=== PATIENT | male | born 1945 | race Caucasian/White ===

== ENCOUNTER 2021-05-16 10:07 | Emergency (ER) | payer MEDICARE ==
[~2021-05-16 10:07] MED LIST: FLEXERIL 10 MG10 MG PO; LODINE CAP 300300 MG PO
[2021-05-16 11:14] LABS: HEMOGLOBIN 11.8 gm/dl (14.0-17.5); RED BLOOD COUNT 4.16 M/UL (4.20-5.50); WHITE BLOOD COUNT 9.7 K/UL (4.5-11.0)
[2021-05-16 11:48] LABS: BUN/CREATININE RATIO 14 (0-10)
[2021-05-16] MEDS ORDERED: ZOFRAN ODT 4 MG4 MG PO (14:27)
[2021-05-16] MEDS ORDERED: AUGMENTIN 875-1 EACH PO (14:27)
[2021-05-16] MEDS ORDERED: COLACE 100MG C100 MG PO (14:27)
[2021-05-16] MEDS ORDERED: BENTYL 10MG CAP10 MG PO (14:27)
[2021-05-17] MEDS ORDERED: FINASTERIDE5 MG PO (13:23)
[2021-05-17] MEDS ORDERED: LOSARTAN POTASS50 MG PO (13:24)
[2021-05-17] MEDS ORDERED: ASPIRIN EC81 MG PO (13:24)
[2021-05-17] MEDS ORDERED: MEGARED ADVANC1 EAC1 PO (13:26)
[2021-05-17] MEDS ORDERED: GARLIC1000 MG PO (13:27)
[2021-05-17] MEDS ORDERED: SAW PALMETTO 1160 MG PO (13:27)
== END 2021-05-16 14:43 | disposition home or self-care (01) ==
LOC: ER1 10:07
PROVIDERS: Emergency Medicine
DX: K52.9 Noninfective gastroenteritis and colitis, unspecified (principal); K57.32 Diverticulitis of large intestine without perforation or abscess without bleeding; I10 Essential (primary) hypertension; Z20.822 Contact with and (suspected) exposure to COVID-19
CPT/HCPCS: 71045; 80053; 82550; 82553; 84484; 85025; 93005; 96374; 96375; 99285; J1885; J2405; Q9967; U0002

== ENCOUNTER 2021-05-17 04:31 | Inpatient (IN) | payer MEDICARE, BC ==
[~2021-05-17] VITALS: Ht 175.3 cm; Wt 92.5 kg
[~2021-05-17 04:31] MED LIST changes: +AUGMENTIN 875-1 EACH PO; +BENTYL 10MG CAP10 MG PO; +COLACE 100MG C100 MG PO; +ZOFRAN ODT 4 MG4 MG PO
[2021-05-17 05:30] LABS: HEMOGLOBIN 11.9 gm/dl (14.0-17.5); RED BLOOD COUNT 4.12 M/UL (4.20-5.50); WHITE BLOOD COUNT 10.5 K/UL (4.5-11.0)
[2021-05-17 05:57] LABS: BUN/CREATININE RATIO 14 (0-10)
[2021-05-17 12:52] LABS: CRYPTOCOCCUS NEOFORMANS/GATTII Not Detected (Negative); CYTOMEGALOVIRUS Not Detected (Negative); ENTEROVIRUS Not Detected (Negative); ESCHERICHIA COLI K1 Not Detected (Negative); HAEMOPHILUS INFLUENZAE Not Detected (Negative); HERPES SIMPLEX VIRUS 1 Not Detected (Negative); HERPES SIMPLEX VIRUS 2 Not Detected (Negative); HUMAN HERPESVIRUS 6 Not Detected (Negative); HUMAN PARECHOVIRUS Not Detected (Negative); LISTERIA MONOCYTOGENES Not Detected (Negative); NEISERRIA MENINGITIDIS Not Detected (Negative); STREPTOCOCCUS AGALACTIAE Not Detected (Negative); STREPTOCOCCUS PNEUMONIAE Not Detected (Negative); VARICELLA ZOSTER VIRUS Not Detected (Negative)
[2021-05-17 13:11] LABS: RBC (AUTOMATED) 100 10^6 (0); WBC (AUTOMATED 446 10^3 (0-5)
[2021-05-17] MEDS ORDERED: FINASTERIDE5 MG PO (13:23)
[2021-05-17] MEDS ORDERED: ASPIRIN EC81 MG PO (13:24)
[2021-05-17] MEDS ORDERED: LOSARTAN POTASS50 MG PO (13:24)
[2021-05-17] MEDS ORDERED: MEGARED ADVANC1 EAC1 PO (13:26)
[2021-05-17] MEDS ORDERED: GARLIC1000 MG PO (13:27)
[2021-05-17] MEDS ORDERED: SAW PALMETTO 1160 MG PO (13:27)
[2021-05-17 14:01] LABS: GLUCOSE,CSF 71 mg/dL (50-80)
[2021-05-17 14:22] LABS: TOTAL PROTEIN,CSF 404 mg/dL (20-45)
--- NOTE | 2021-05-18 03:06 | NUR ---
PATIENTS SON HIGHLY UPSET STATES, " NOBODY HAS COMMUNICATED DADS DIAGNOSIS OR HIS TEST RESULTS I WANT TO KNOW WHAT IS GOING ON." I COMMUNICATED BEST TO MY ABILITY THE RESULTS OF CT AND PROGRESS NOTE FROM DR. REY. EXPLAINED POC AND UPCOMING TESTS PLANNED. PTS SON WANTS TO SPEAK WITH MD NOW. DR. GIBSON NOTIFIED. CECILIA STONE NOTIFIED.
--- NOTE | 2021-05-18 04:00 | NUR ---
PATIENTS SON IS HIGHLY UPSET AND WANTS TO SPEAK WITH MD. I HAVE NOTIFIED MD AND CREATIVE PERFUMER. ALSO NOTIFIED [facility] CERTIFIED SUPERVISOR OF PTS SONS COMPLAINTS. AT BEDSIDE TALKING TO PTS SON.
[2021-05-18 05:20] LABS: HEMOGLOBIN 10.7 gm/dl (14.0-17.5); RED BLOOD COUNT 3.79 M/UL (4.20-5.50)
[2021-05-18 05:34] LABS: BUN/CREATININE RATIO 25 (0-10)
--- NOTE | 2021-05-18 06:36 | NUR ---
PATIENT NOTED TO HAVE RHYTHM CHANGE NOTIFIED DR. MARTINEZ ORDERED STAT EKG AND PLACED.
--- NOTE | 2021-05-18 23:16 | NUR ---
NOTIFIED DR. FINN OF PTS RUN OF SVT/TACH NO NEW ORDERS OBTAINED. JUST CONTINUE TO MONITOR.
[2021-05-19 03:02] LABS: BORDETELLA PARAPERTUSSIS Not Detected (Not Detectd); BORDETELLA PERTUSSIS Not Detected (Not Detectd); CHLAMYDIA PNEUMONIAE Not Detected (Not Detectd); CORONAVIRUS HKU1 Not Detected (Not Detectd); CORONAVIRUS NL63 Not Detected (Not Detectd); CORONAVIRUS OC43 Not Detected (Not Detectd); CORONOAVIRUS 229E Not Detected (Not Detectd); HUMAN METAPNEUMOVIRUS Not Detected (Not Detectd); HUMAN RHINOVIRUS/ENTEROVIRUS Not Detected (Not Detectd); INFLUENZA A Not Detected (Not Detectd); INFLUENZA B Not Detected (Not Detectd); MYCOPLASMA PNEUMONIAE Not Detected (Not Detectd); PARAINFLUENZA VIRUS 1 Not Detected (Not Detectd); PARAINFLUENZA VIRUS 2 Not Detected (Not Detectd); PARAINFLUENZA VIRUS 3 Not Detected (Not Detectd); PARAINFLUENZA VIRUS 4 Not Detected (Not Detectd); RESPIRATORY SYNCYTIAL VIRUS Not Detected (Not Detectd)
[2021-05-19 04:02] LABS: HEMOGLOBIN 10.4 gm/dl (14.0-17.5); RED BLOOD COUNT 3.67 M/UL (4.20-5.50); WHITE BLOOD COUNT 9.8 K/UL (4.5-11.0)
[2021-05-19 04:12] LABS: SARS-CoV-2 NOT DETECTED (Not Detectd)
[2021-05-19 04:28] LABS: BUN/CREATININE RATIO 31 (0-10)
[2021-05-19 09:10] LABS: RPR Non Reactive (Non Reactive)
[2021-05-19] MEDS ORDERED: LOPRESSOR 25 MG25 MG PO (13:30)
--- NOTE | 2021-05-19 23:50 | NUR ---
SON PRESENT IN ROOM. UPDATED WITH INFORMATION THAT [facility] HAD CALLED FOR AN UPDATE ON CONDITION BUT STILL NO BED AVAILABLE. NO FURTHER NEEDS NOTED AT THIS TIME.
[2021-05-20 07:18] LABS: RED BLOOD COUNT 3.73 M/UL (4.20-5.50); WHITE BLOOD COUNT 7.5 K/UL (4.5-11.0)
[2021-05-20 07:43] LABS: BUN/CREATININE RATIO 32 (0-10)
[2021-05-21 04:26] LABS: HEMOGLOBIN 10.2 gm/dl (14.0-17.5); RED BLOOD COUNT 3.66 M/UL (4.20-5.50); WHITE BLOOD COUNT 5.7 K/UL (4.5-11.0)
[2021-05-21 04:53] LABS: BUN/CREATININE RATIO 29 (0-10)
[2021-05-22 06:47] LABS: BUN/CREATININE RATIO 29 (0-10)
--- NOTE | 2021-05-22 13:35 | NUR ---
dr. [employer] food [employer] team member on the floor earlier and reported patient episodes of pulse ranging from high 50's at rest and high 100-120's with activity. he acknowledged and stated per cardiac standpoint will sign off. patient asymptomatic.
[2021-05-23 04:42] LABS: HEMOGLOBIN 11.5 gm/dl (14.0-17.5)
[2021-05-23 04:44] LABS: RED BLOOD COUNT 4.09 M/UL (4.20-5.50); WHITE BLOOD COUNT 8.2 K/UL (4.5-11.0)
[2021-05-23 04:53] LABS: BUN/CREATININE RATIO 28 (0-10)
--- NOTE | 2021-05-23 06:08 | NUR ---
spoke with pharmacy in attempts to obtain this am dose of acyclovir iv. was informed that they are mixing it and will have it sent over for administration shortly.
[2021-05-23 14:14] LABS: CRYPTOCOCCUS ANTIGEN, SERUM Negative (Negative)
[2021-05-24 03:07] LABS: BUN/CREATININE RATIO 28 (0-10)
[2021-05-25 07:17] LABS: BUN/CREATININE RATIO 29 (0-10)
[2021-05-26 06:34] LABS: RED BLOOD COUNT 4.23 M/UL (4.20-5.50); WHITE BLOOD COUNT 11.7 K/UL (4.5-11.0)
[2021-05-26 06:54] LABS: BUN/CREATININE RATIO 27 (0-10)
== END 2021-05-26 14:29 | disposition home or self-care (01) | DRG 871 ==
LOC: ER1 04:31 → M/S 14:41 → PROG CARE 14:41 → CDU 14:41 → PROG CARE 05-18 01:46 → M/S 05-19 14:11
PROVIDERS: Emergency Medicine; Internal Medicine; Internal Medicine Infectious Disease; Nurse Practitioner Family; Physician Assistant; Student in an Organized Health Care Education/Training Program; ADMIT Internal Medicine
PROC: 009U3ZX Drainage of Spinal Canal, Percutaneous Approach, Diagnostic (ICD-10-PCS; principal; 2021-05-17)
PROC: B01B1ZZ Fluoroscopy of Spinal Cord using Low Osmolar Contrast (ICD-10-PCS; 2021-05-17)
PROC: 3E0333Z Introduction of Anti-inflammatory into Peripheral Vein, Percutaneous Approach (ICD-10-PCS; 2021-05-17)
PROC: B24BZZ4 Ultrasonography of Heart with Aorta, Transesophageal (ICD-10-PCS; 2021-05-19)
DX: A41.9 Sepsis, unspecified organism (principal); G00.9 Bacterial meningitis, unspecified; J12.9 Viral pneumonia, unspecified; G93.41 Metabolic encephalopathy; E87.2 Acidosis; I47.1 Supraventricular tachycardia; Z20.822 Contact with and (suspected) exposure to COVID-19; I27.20 Pulmonary hypertension, unspecified; C61 Malignant neoplasm of prostate; I10 Essential (primary) hypertension; R26.0 Ataxic gait; I08.3 Combined rheumatic disorders of mitral, aortic and tricuspid valves; Z96.612 Presence of left artificial shoulder joint; Z96.611 Presence of right artificial shoulder joint; Z79.82 Long term (current) use of aspirin; Z85.51 Personal history of malignant neoplasm of bladder; Z87.891 Personal history of nicotine dependence
CPT/HCPCS: ECHO; 36415; 36600; 70450; 70496; 70498; 70553; 71045; 71260; 80048; 80053; 80202; 80307; 81001; 82140; 82550; 82553; 82607; 82803; 82945; 82962; 83605; 83690; 83735; 83874; 83880; 84100; 84157; 84439; 84443; 84484; 85025; 85027; 85610; 85652; 86140; 86592; 87040; 87070; 87205; 87210; 87483; 87633; 87899; 89051; 92526; 92610; 93005; 93306; 94760; 96374; 96375; 97116; 97116-GP-CQ; 97162; 97165; 97530; 97530-GP-CQ; 99285; A9577; G0480; J0133; J0290; J0692; J1100; J1650; J1885; J2060; J2405; J3370; J7030; J7040; J7050; J7070; Q9967; U0002